=== PATIENT | male | born 1940 | race Caucasian/White ===

== ENCOUNTER 2017-07-26 16:51 | Emergency (ER) | payer BC ==
[2017-07-26 17:20] LABS: Hematocrit 44 % (42-52); Hemoglobin 14.7 g/dl (14.0-18.0); Mean Corpuscular HGB Conc 34 g/dl (31-36); Mean Corpuscular Hemoglobin 35 pg (27-31); Mean Corpuscular Volume 103 fL (80-94); Mean Platelet Volume 9 um3 (7.4-10.4); Red Blood Count 4.21 10^6/ul (4.0-5.4); Red Cell Distribution Width 13 % (10.5-15); White Blood Count 8.4 10^3/ul (3.5-10.8)
--- NOTE | 2017-07-26 17:23 | RAD ---
Indication: Neurologic changes. CT of the brain was performed without IV contrast. Ventricular structures are midline. No midline shift is noted. There is a intraparenchymal hematoma in the left basal ganglia measuring up to 4.0 cm. Adjacent edema is noted. Extra-axial spaces are unremarkable. Mastoid air cells and paranasal sinuses are unremarkable. IMPRESSION: Large intraparenchymal hematoma measuring 4.0 cm in the left basal ganglia. Findings discussed with Dr. Canales at 1720 hours.
[2017-07-26 17:31] LABS: Albumin 3.9 g/dL (3.2-5.2); BUN/Creatinine Ratio 11.7 (8-20); Calcium 9.1 mg/dL (8.6-10.3); EGFR African American 100.1 (>60); EGFR Non-African American 77.8 (>60); Globulin 3.2 g/dL (2-4); HDL Cholesterol 53.9 mg/dL; Potassium 3.4 mmol/L (3.5-5.0); Total Bilirubin 0.9 mg/dL (0.2-1.0); Total Protein 7.1 g/dL (6.4-8.9)
[2017-07-26] MEDS ORDERED: NS 0.9% 1000 ML* 1,000 ML IV ONE (17:38)
[2017-07-26] MEDS: NS 0.9% 1000 ML* 1,000 ML IV ONE ×2 (17:39→19:06)
--- NOTE | 2017-07-26 17:51 | ED ---
Subhash Arora Thomas, scribed for Jamie Canales MD on 07/26/17 at 1745 . Neurological HPI - HPI Summary HPI Summary: The patient is a 77 y/o M BIB EMS with complaints of R-sided weakness that began today at 14:20 when he was playing golf. Per EMS, he has not been feeling well all day. At initial evaluation, he is aphasic with slurred speech. We spoke with his in the ED. Per , he does not have a PMHx of a stroke. He does have a PSHx of a CABG 7 years ago. He has HTN for which he takes Plavix. She denies that he is on Coumadin. She denies that he has DM, major kidney problems, breathing treatments in the last few months, a recent MVC, or a major recent fall. He does not smoke. He does drink daily. - History of Current Complaint Chief Complaint: EDNeurologicalDeficit Stated Complaint: CODE [place] Time Seen by Provider: 07/26/17 16:52 Hx Obtained From: Patient Onset/Duration: Sudden Onset, Started hours ago - today at 16:20 Pain Intensity: 0 Pain Scale Used: 0-10 Numeric - Allergy/Home Medications Allergies/Adverse Reactions: Allergies Allergy/AdvReac Type Severity Reaction Status Date / Time No Known Allergies Allergy Verified 10/31/13 09:44 Home Medications: Home Medications Acetaminophen [Acetaminophen Extra Stren] 500 mg PO Q6HR 07/26/17 [History Confirmed 07/26/17] Allopurinol TAB* [Zyloprim 300 MG TAB*] 300 mg PO DAILY 07/26/17 [History Confirmed 07/26/17] Levothyroxine TAB* [Synthroid TAB*] 25 mcg PO DAILY 07/26/17 [History Confirmed 07/26/17] Metoprolol Tartrate TAB* [Lopressor TAB*] 12.5 mg PO DAILY 07/26/17 [History Confirmed 07/26/17] PMH/Surg Hx/FS Hx/Imm Hx Previously Healthy: No Endocrine/Hematology History: Reports: Hx Anemia - ON DAILY PLAVIX Cardiovascular History: Reports: Hx Coronary Artery Disease - BY-PASS OPEN HEART SURGERY 2010, Hx Hypertension - BP [id number] CHECKED BOTH ARMS: AUTO& MANUAL GI History: Reports: Hx Gastroesophageal Reflux Disease - ON DAILY MEDS Musculoskeletal History: Reports: Hx Arthritis - KNEES Sensory History: Reports: Hx Contacts or Glasses - CONTACTS, WILL WEAR GLASSES Opthamlomology History: Reports: Hx Contacts or Glasses - CONTACTS, WILL WEAR GLASSES - Surgical History Surgery Procedure, Year, and Place: 1965 HERNIA REPAIR. 1991 LEFT KNEE SCOPE. 1997 \RIGHT ELBOW E[facility] [place] SURGERY. 2001 LEFT KNEE SURGERY. 2006 RIGHT KNEE SURGERY. 2008 RIGHT TOTAL KNEE [facility]. 2010 DOUBLE BY-PASS OPEN HEART SURGERY [facility] Hx Anesthesia Reactions: No Infectious Disease History: No Infectious Disease History: Reports: Hx Shingles - 11/2010 Denies: Traveled Outside the [place] in Last 30 Days - Family History Known Family History: Positive: Other - Unknown d/t pt's status - Social History Alcohol Use: Daily Substance Use Type: Reports: None Smoking Status (MU): Never Smoked Tobacco Review of Systems Negative: Fever Neurological: Other - POS: R-sided weakness, aphasia Positive: Slurred Speech All Other Systems Reviewed And Are Negative: Yes Physical Exam Triage Information Reviewed: Yes Vital Signs On Initial Exam: Initial Vitals Temp Pulse Resp BP Pulse Ox 98.2 F 73 18 169/100 99 07/26/17 16:51 07/26/17 16:51 07/26/17 16:51 07/26/17 16:51 07/26/17 16:51 Vital Signs Reviewed: Yes Appearance: Positive: Well-Appearing, No Pain Distress Skin: Positive: Warm, Skin Color Reflects Adequate Perfusion, Dry Head/Face: Positive: Normal Head/Face Inspection Eyes: Positive: EOMI, MODE ENT: Positive: Normal ENT inspection Neck: Positive: Supple, Nontender Respiratory/Lung Sounds: Positive: Clear to Auscultation, Breath Sounds Present Cardiovascular: Positive: RRR Abdomen Description: Positive: Nontender, Soft Musculoskeletal: Positive: Normal, Strength/ROM Intact Neurological: Positive: Expressive Aphasia, Facial Droop, Focal Deficit @ - RT FACE/ARM/LEG IS FLACCID, Slurred Speech, Dysphagia, Dysarthric Aphasia, Other - PARTIAL LEFT EYE GAZE - Jim Coma Scale Coma Scale Total: 12 Diagnostics - Vital Signs Vital Signs Temp Pulse Resp BP Pulse Ox 07/26/17 17:22 73 16 95 07/26/17 17:20 176/103 07/26/17 16:52 96 07/26/17 16:51 98.2 F 73 18 169/100 99 - Laboratory Lab Results: Lab Results 07/26/17 07/26/17 07/26/17 Range/Units 16:55 16:58 16:58 WBC 8.4 (3.5-10.8) 10^3/ul RBC 4.21 (4.0-5.4) 10^6/ul Hgb 14.7 (14.0-18.0) g/dl Hct 44 (42-52) % MCV 103 H (80-94) fL MCH 35 H (27-31) pg MCHC 34 (31-36) g/dl RDW 13 (10.5-15) % Plt Count 144 L (150-450) 10^3/ul MPV 9 (7.4-10.4) um3 Neut % (Auto) 67.6 (38-83) % Lymph % (Auto) 15.9 L (25-47) % [place] % (Auto) 13.2 H (1-9) % Eos % (Auto) 2.4 (0-6) % Baso % (Auto) 0.9 (0-2) % Absolute Neuts (auto) 5.7 (1.5-7.7) 10^3/ul Absolute Lymphs (auto) 1.3 (1.0-4.8) 10^3/ul Absolute Monos (auto) 1.1 H (0-0.8) 10^3/ul Absolute Eos (auto) 0.2 (0-0.6) 10^3/ul Absolute Basos (auto) 0.1 (0-0.2) 10^3/ul Absolute Nucleated RBC 0 10^3/ul Nucleated RBC % 0 INR (Anticoag Therapy) 1.01 (0.89-1.11) APTT 28.8 (26.0-36.3) seconds Sodium (133-145) mmol/L Potassium (3.5-5.0) mmol/L Chloride (101-111) mmol/L Carbon Dioxide (22-32) mmol/L Anion Gap (2-11) mmol/L BUN (6-24) mg/dL Creatinine (0.67-1.17) mg/dL Est GFR ( Amer) (>60) Est GFR (Non-Af Amer) (>60) BUN/Creatinine Ratio (8-20) Glucose (70-100) mg/dL POC Glucose (mg/dL) 102 H (70-100) mg/dL Lactic Acid (0.5-2.0) mmol/L Calcium (8.6-10.3) mg/dL Total Bilirubin (0.2-1.0) mg/dL AST (13-39) U/L ALT (7-52) U/L Alkaline Phosphatase (34-104) U/L Troponin I (<0.04) ng/mL Total Protein (6.4-8.9) g/dL Albumin (3.2-5.2) g/dL Globulin (2-4) g/dL Albumin/Globulin Ratio (1-3) Triglycerides mg/dL Cholesterol mg/dL LDL Cholesterol mg/dL HDL Cholesterol mg/dL Blood Type Antibody Screen 07/26/17 07/26/17 07/26/17 Range/Units 16:58 16:58 16:58 WBC (3.5-10.8) 10^3/ul RBC (4.0-5.4) 10^6/ul Hgb (14.0-18.0) g/dl Hct (42-52) % MCV (80-94) fL MCH (27-31) pg MCHC (31-36) g/dl RDW (10.5-15) % Plt Count (150-450) 10^3/ul MPV (7.4-10.4) um3 Neut % (Auto) (38-83) % Lymph % (Auto) (25-47) % [place] % (Auto) (1-9) % Eos % (Auto) (0-6) % Baso % (Auto) (0-2) % Absolute Neuts (auto) (1.5-7.7) 10^3/ul Absolute Lymphs (auto) (1.0-4.8) 10^3/ul Absolute Monos (auto) (0-0.8) 10^3/ul Absolute Eos (auto) (0-0.6) 10^3/ul Absolute Basos (auto) (0-0.2) 10^3/ul Absolute Nucleated RBC 10^3/ul Nucleated RBC % INR (Anticoag Therapy) (0.89-1.11) APTT (26.0-36.3) seconds Sodium 135 (133-145) mmol/L Potassium 3.4 L (3.5-5.0) mmol/L Chloride 104 (101-111) mmol/L Carbon Dioxide 27 (22-32) mmol/L Anion Gap 4 (2-11) mmol/L BUN 11 (6-24) mg/dL Creatinine 0.94 (0.67-1.17) mg/dL Est GFR ( Amer) 100.1 (>60) Est GFR (Non-Af Amer) 77.8 (>60) BUN/Creatinine Ratio 11.7 (8-20) Glucose 110 H (70-100) mg/dL POC Glucose (mg/dL) (70-100) mg/dL Lactic Acid 1.5 (0.5-2.0) mmol/L Calcium 9.1 (8.6-10.3) mg/dL Total Bilirubin 0.90 (0.2-1.0) mg/dL AST 40 H (13-39) U/L ALT 33 (7-52) U/L Alkaline Phosphatase 82 (34-104) U/L Troponin I 0.00 (<0.04) ng/mL Total Protein 7.1 (6.4-8.9) g/dL Albumin 3.9 (3.2-5.2) g/dL Globulin 3.2 (2-4) g/dL Albumin/Globulin Ratio 1.2 (1-3) Triglycerides 184 mg/dL Cholesterol 131 mg/dL LDL Cholesterol 40 mg/dL HDL Cholesterol 53.9 mg/dL Blood Type O Negative Antibody Screen Pending Result Diagrams: 07/26/17 16:58 07/26/17 16:58 Lab Statement: Any lab studies that have been ordered have been reviewed, and results considered in the medical decision making process. NIH Scale - NIH Scale Level of Consciousness: Alert/Keenly Responsive Ask Patient the Month and His/Her Age: Neither Correct/Aphasic Ask Pt to Open/Close Eyes and Anthropologist/Release Non-Paretic Hand: Both Correctly Best Gaze (Only Horizontal Eye Movement): Partial Gaze Palsy Visual Field Testing: No Visual Loss Facial Paresis-Pt to Smile & Close Eyes or Grimace Symmetry: Complete Paralysis Motor Function - Right Arm: No Effort Against [place] Motor Function - Left Arm: No Drift-Holds 10 Seconds Motor Function - Right Leg: No Effort Against [place] Motor Function - Left Leg: No Drift-Holds 10 Seconds Limb Ataxia-Must be out of Proportion to Weakness Present: Present in Two Limbs Sensory (Use Pinprick to Test Arms/Legs/Trunk/Face): Pinprick Less on Affected Best Language (Describe Picture, Name Items): Mute/Global Aphasia Dysarthria (Read Several Words): Unintelligible or Mute Extinction and Inattention: Profound Bj-Inattention Total Score: 22 Course/Dx - Course Course Of Treatment: INITIAL NIH 22 AT 1655. NIH [address] SEALS, NEUROLOGY SAW PATIENT IN ED. GOAL TO KEEP BP < 170/90, BP 170/80 IN ED. NO NEUROSURGERY AT [facility]. PATIENT ACCEPTED IN TRANSFER TO [facility] BY NEUROSURGERY, DR NAVA. MARCUSFER BY AIR. GUARDED, MAINTAINING AIRWAY AT TRANSFER. - Diagnoses Provider Diagnoses: Basal ganglia hemorrhage, Basal ganglia hemorrhage - Critical Care Time Critical Care Time: 30-74 min Discharge - Discharge Plan Condition: Guarded Disposition: TRANS HIGHER LVL OF CARE FAC Referrals: Donald Dickinson MD [Primary Care Provider] - The documentation as recorded by the Subhash parker Thomas accurately reflects the service I personally performed and the decisions made by me, Jamie Canales MD.
--- NOTE | 2017-07-26 18:07 | RAD ---
Indication: Stroke. Single frontal view of the chest performed at 1730 hours was reviewed. Comparison is made with previous exam dated April 30, 2005. Cardiomegaly is noted. Patient is status post tracer thoracotomy. Lung gu are essentially clear. IMPRESSION: NO ACTIVE CARDIOPULMONARY DISEASE IS NOTED.
[2017-07-26 18:25] VITALS: BP 165/80
--- NOTE | 2017-07-26 21:51 | CONS ---
NEUROLOGY CONSULTATION: DATE OF CONSULTATION: 07/26/17 REFERRING PHYSICIAN: Dr. Canales. LOCATION: He is in the emergency room. CHIEF COMPLAINT: Right hemiparesis. HISTORY OF PRESENT ILLNESS: Josh Bains is a 77-year-old right-handed man who was out golfing at [employer] today when he developed neurological deficits. According to the ambulance attendance who brought him, they were called and told that within the last 20 minutes to 30 minutes prior to the arrival, he developed inability to speak and right-sided weakness. He was unable to get out the golf cart under his own power. He was brought into the emergency room and was here within less than 60 minutes of onset of symptoms with last known well about 4:30. His was subsequently present, provided further history. He was sent to the CAT scanner and that shows a fairly large left basal ganglia hemorrhage. He is on Plavix, but has no prior history of intracranial hemorrhage. He does have history of hypertension. PAST MEDICAL HISTORY: Notable for arthroscopic knee surgeries, multiple other orthopedic surgeries, Staph infection in his knee years ago, coronary artery disease with bypass surgery in 2010, hyperlipidemia, hypertension, gastroesophageal reflux. MEDICATIONS: I do not have a full home medications list, but he is on: 1. Metoprolol. 2. Plavix. 3. Omeprazole. 4. Simvastatin. 5. Allopurinol. 6. Levothyroxine. ALLERGIES: According to computer records, he does not have any drug allergies. REVIEW OF SYSTEMS: Review of systems is from his . He did have fall at home a couple of weeks ago, but he did not seem to be injured. He is generally pretty steady on his feet. He golfs for exercise and is supposed to be in a semifinals in a tournament that he is in in the next day or so. He has not had any recent trauma. He has not had any recent surgeries. He has no known bleeding disorders. He is not on anticoagulants, just Plavix for his coronary artery disease. He does not smoke. His when asked if he drinks says yes, "too much." PHYSICAL EXAMINATION: He is well nourished and well hydrated. Temperature 98.2 , initial blood pressure was 190/100 and more recently came down to 176/103 without additional medical therapy. Heart rate is in the 70s on the monitor, in sinus rhythm. Respiratory rate is about 16 and oxygen saturation is 95% on room air. Lungs are clear anterolaterally. Heart is in a regular rhythm without murmurs. Carotid pulses are present and there are no cervical bruits. Oral mucosa is moist and atraumatic. Head is atraumatic. Neurologic Exam: Pupils react equally from 4 to down about 2.5 mm. His left gaze preference is able to exhibit full versions with tracking. He does not respond to visual threat from the right, but he does from the left. He has central pattern right facial weakness, this was pretty pronounced. He is able to protrude his tongue , which deviates to the right. There is no gag response on either side. He is able to tell me that his name is Josh, but he is quite dysarthric. He does not produce any speech spontaneously. He has good use of his left arm and leg and follows commands about 75% at the time. He is able to raise his right hand up a little bit, his right arm, but not completely off the stretcher not for a long. He is able to raise the right leg up quite well with a little bit of drift. He has good strength on the left side. He has a right Babinski sign. He is a little bit sleepy with his eyes closed at times, but he remains otherwise alert through the evaluation. His NIH stroke score is at least 17 by my assessment. LABORATORY/DIAGNOSTIC DATA: CT of the brain was obtained and described above. It was interpreted by ____as showing a large intraparenchymal hematoma measuring 4 cm in the left basal ganglia. Other laboratory studies are notable for CBC with a normal hemoglobin and white blood cell count, MCV elevated at 103 and platelet count 144,000. Lymphocyte percentage is down to 15.9%. His INR is 1.01 and PTT 28.8 today. Chemistries notable for potassium of 3.4, glucose of 110. Otherwise, normal chemistry profile. Initial troponin is 0. Cholesterol today is 131 and LDL 40. IMPRESSION AND RECOMMENDATIONS: Impression is that of a fairly large hypertensive basal ganglia hemorrhage. Recommend very modest decrease in blood pressure by about 10% or so with labetalol. Dr. Canales is currently calling to find a center with neurosurgical capability for transfer. I have discussed the situation with Mrs. Bains, who is present and then her 2 daughters, who subsequently arrived. Explained the rationale behind the need for neurosurgical transfer in case he were to deteriorate and required neurosurgical intervention. He also would likely benefit from neuro ICU capabilities, which we do not have here. [id number]/[facility] #: [id number] LUANA
== END 2017-07-26 18:27 | disposition short-term general hospital (02) ==
LOC: EDBD → MERGE 16:51 → ED 16:51
DX: I61.9 Nontraumatic intracerebral hemorrhage, unspecified (principal); Z86.79 Personal history of other diseases of the circulatory system; R47.81 Slurred speech
CPT/HCPCS: 36415; 70450; 71010; 80053; 80061; 83605; 84484; 85025; 85610; 85730; 86850; 86900; 86901; 99285

== ENCOUNTER 2019-03-22 08:42 | Day surgery (SDC) | payer BC ==
[~2019-03-22 08:42] MED LIST: Acetaminophen TAB* 325 MG PO PRN; Buffered Lidocaine 1% SYRIN* 1 ML/SYRINGE INTRADERM ONE
[2019-03-22] MEDS ORDERED: Midazolam* 1 MG/ML 2 ML VIAL (2 MG) ONE (11:11)
[2019-03-22 13:01] VITALS: BP 145/81
[2019-03-22] MEDS ORDERED: Cyclopentolate 1% OPTH.SOL* 2 ML BTL ONE (14:03)
[2019-03-22] MEDS ORDERED: Neomycin/Polymy/Dex OPTH.SUSP* MAXITROL 0.1% 5 ML ONE (14:03)
[2019-03-22] MEDS ORDERED: acetaZOLAMIDE TAB* 250 MG ONE (14:03)
[2019-03-22] MEDS ORDERED: Proparacaine 0.5% OPHTH.SOL* 15 ML BTL ONE (14:03)
[2019-03-22] MEDS ORDERED: Phenylephrine OPHTH SOL 2.5%* 2 ML ONE (14:03)
[2019-03-22] MEDS ORDERED: Povidone Iodine 5% OPTH* 30 ML BTL ONE (14:03)
[2019-03-22] MEDS ORDERED: Lidocaine 1%* 5 ML VIAL ONE (14:03)
[2019-03-22] MEDS ORDERED: Lidocaine 2% EPI 1:200000 MPF*10-20 ML VIAL ONE (14:03)
--- NOTE | 2019-03-22 14:23 | OP ---
OPERATIVE NOTE: DATE OF OPERATION: 03/22/19 DATE OF : 40 SURGEON: Eric Rosenthal M.D. PREOPERATIVE DIAGNOSIS: Cataract, left eye. POSTOPERATIVE DIAGNOSIS: Cataract, left eye. OPERATIVE PROCEDURE: Extracapsular cataract extraction with intraocular lens implant, left eye. PROCEDURE: The patient was brought to the operating room after being given 1/2% Alcaine with epineph rine drops in the preoperative area. The eye was prepped and draped in the usual sterile fashion. S terile drape and eyelid speculum were placed. Again, topical 1/2% Alcaine with epinephrine was given . A paracentesis incision was made at the 3 o'clock position with the No.75 blade. Clear cornea inc ision 2.2 x 2.2-mm was created at the 6 o'clock position starting at the anterior limbus using the 2. 2-mm keratome. The anterior chamber was irrigated with 0.4 mL of 1% non-preservative intracameral li docaine and filled with DisCoVisc. A capsulorrhexis was completed using the cystotome and the Utrata forceps. Hydrodissection was performed with balanced salt solution. The lens nucleus was removed wi th the Phacoemulsification handpiece without incident. Cortex was removed with the irrigation-aspira tion handpiece. The capsular bag was re-inflated using DisCoVisc and an [id number] implant was insert ed with the shooter. The irrigation-aspiration handpiece was used to remove all residual DisCoVisc. The eye was refilled with balanced salt solution and the wound checked and found to be watertight. Topical Maxitrol drops were given. All measurements were confirmed with ORA. [id number]/[facility] #: [id number]
== END 2019-03-22 12:03 | disposition home or self-care (01) ==
LOC: OREAST 08:42
PROVIDERS: ATTEND Specialist
DX: H25.812 Combined forms of age-related cataract, left eye (principal); I10 Essential (primary) hypertension; K21.9 Gastro-esophageal reflux disease without esophagitis; I25.10 Atherosclerotic heart disease of native coronary artery without angina pectoris; Z95.1 Presence of aortocoronary bypass graft; E03.9 Hypothyroidism, unspecified; Z79.01 Long term (current) use of anticoagulants; M10.9 Gout, unspecified
CPT/HCPCS: A9270-GY; J2250; V2632

== ENCOUNTER 2019-03-29 12:24 | Day surgery (SDC) | payer BC ==
[~2019-03-29 12:24] MED LIST changes: +Cyclopentolate 1% OPTH.SOL* 2 ML BTL ONE; +Ketorolac 0.5% OPHTH (NF) 0.5 % 5 ML BTL ONE; +Lidocaine 1%* 5 ML VIAL ONE; +Lidocaine 2% EPI 1:200000 MPF*10-20 ML VIAL ONE; +Neomycin/Polymy/Dex OPTH.SUSP* MAXITROL 0.1% 5 ML ONE; +Phenylephrine OPHTH SOL 2.5%* 2 ML ONE; +Povidone Iodine 5% OPTH* 30 ML BTL ONE; +Proparacaine 0.5% OPHTH.SOL* 15 ML BTL ONE; +acetaZOLAMIDE TAB* 250 MG ONE
[2019-03-29] MEDS ORDERED: Midazolam* 1 MG/ML 2 ML VIAL (2 MG) ONE (15:06)
[2019-03-29 17:39] VITALS: BP 130/70
--- NOTE | 2019-03-29 21:30 | OP ---
DATE OF OPERATION: 03/29/19 [facility] DATE OF : 40 SURGEON: Eric Rosenthal M.D. PREOPERATIVE DIAGNOSIS: Cataract, right eye. POSTOPERATIVE DIAGNOSIS: Cataract, right eye. OPERATIVE PROCEDURE: Extracapsular cataract extraction with intraocular lens implant, right eye. DESCRIPTION OF PROCEDURE: The patient was brought to the operating room after being given 1/2% Alcaine with epinephrine drops in the preoperative area. The eye was prepped and draped in the usual sterile fashion. Sterile drape and eyelid speculum were placed. Again, topical 1/2% Alcaine with epinephrine was given. A paracentesis incision was made at the 9 o'clock position with the No.75 blade. Clear cornea incision 2.2 x 2.2-mm was created at the 12 o'clock position starting at the anterior limbus using the 2.2-mm keratome. The anterior chamber was irrigated with 0.4 mL of 1% non-preservative intracameral lidocaine and filled with DisCoVisc. A capsulorrhexis was completed using the cystotome and the Utrata forceps. Hydrodissection was performed with balanced salt solution. The lens nucleus was removed with the Phacoemulsification handpiece without incident. Cortex was removed with the irrigation-aspiration handpiece. The capsular bag was re-inflated using DisCoVisc and an [id number] 14.5 implant was inserted with the shooter and confirmed with ORA. The irrigation- aspiration handpiece was used to remove all residual DisCoVisc. The eye was refilled with balanced salt solution and the wound checked and found to be watertight. Topical Maxitrol drops were given. [id number]/[facility] #: [id number] [facility]
== END 2019-03-29 16:35 | disposition home or self-care (01) ==
LOC: OREAST 12:24
PROVIDERS: ATTEND Specialist
DX: H25.811 Combined forms of age-related cataract, right eye (principal); I10 Essential (primary) hypertension; K21.9 Gastro-esophageal reflux disease without esophagitis; I25.10 Atherosclerotic heart disease of native coronary artery without angina pectoris; Z95.1 Presence of aortocoronary bypass graft; E78.5 Hyperlipidemia, unspecified; E03.9 Hypothyroidism, unspecified; Z79.01 Long term (current) use of anticoagulants; M10.9 Gout, unspecified
CPT/HCPCS: A9270-GY; J2250; V2632

== ENCOUNTER 2019-07-28 10:02 | Observation (INO) | payer BC ==
[2019-07-28] MEDS ORDERED: NS 0.9% 1000 ML** 1,000 ML IV ONE (10:13)
--- NOTE | 2019-07-28 10:19 | ED ---
Neurological HPI - HPI Summary HPI Summary: This patient is a 79 year old M presenting to ED with a chief complaint of AMS at 845 lasting 15 minutes. Michelle Macias called at 1005. Dr. Lin at bedside at 1005. Patient woke up fine this morning and was eating breakfast with his significant other. Significant other was putting dishes in the sink when she noticed that the patient was cradling his head and leaning on the counter. Patients eyes were not focusing and he couldnt speak even though he was trying to. Significant other states that the patient also had labored breathing and vomited. She had to support the patient to prevent him from falling. Significant other called 911 and moved the patient to a comfortable chair. Upon EMS arrival, patient was back to baseline, responding fine. The AMS lasted approximately 15 minutes. EMS told the patients caretakers (significant other and son) that he most likely had a mini-stroke and was advised to come to [facility]. Patient arrives at [facility] at baseline. He has a history of one stroke two years ago and takes Plavix. The patient rates the pain 0/10 in severity. Symptoms aggravated by nothing. Symptoms alleviated by nothing. - History of Current Complaint Chief Complaint: EDNeurologicalDeficit Stated Complaint: POSS TIA PER PT Hx Obtained From: Patient, Family/Basketball Scout Onset/Duration: Sudden Onset, Started minutes ago - 15 minutes, Resolved Timing: Sudden Onset - 15 minutes Onset Severity: Moderate Current Severity: None Pain Intensity: 0 Pain Scale Used: 0-10 Numeric Character: Impaired Speech Aggravating: Nothing Alleviating: Nothing Associated Signs and Symptoms: Positive: Impaired Speech, Nausea/Vomiting - Allergy/Home Medications Allergies/Adverse Reactions: Allergies Allergy/AdvReac Type Severity Reaction Status Date / Time aspirin Allergy Joint Pain Verified 07/25/19 09:44 Home Medications: Home Medications Carvedilol TAB* [Coreg TAB*] 6.25 mg PO BID 07/28/19 [History Confirmed 07/28/19 ] Cyanocobalamin TAB* [Vitamin B12 TAB*] 1,000 mcg PO DAILY 07/28/19 [History Confirmed 07/28/19] Levothyroxine TAB* [Synthroid TAB*] 75 mcg PO DAILY 07/28/19 [History Confirmed 07/28/19] PMH/Surg Hx/FS Hx/Imm Hx Previously Healthy: No Endocrine/Hematology History: Reports: Hx Thyroid Disease - Hypothyroid, Hx Anemia - ON DAILY PLAVIX Denies: Hx Diabetes Cardiovascular History: Reports: Hx Coronary Artery Disease - BY-PASS OPEN HEART SURGERY 2010, Hx Hypertension - BP [id number]/90 CHECKED BOTH ARMS: AUTO& MANUAL Denies: Hx Cardiomegaly, Hx Congestive Heart Failure, Hx Hypercholesterolemia , Hx Pacemaker/ICD, Hx Peripheral Vascular Disease, Other Cardiovascular Problems/Disorders Respiratory History: Denies: Hx Pulmonary Embolism, Other Respiratory Problems/Disorders GI History: Reports: Hx Gastroesophageal Reflux Disease - ON DAILY MEDS Denies: Hx Ulcer, Other GI Disorders History: Denies: Other Problems/Disorders Musculoskeletal History: Reports: Hx Arthritis - KNEES Denies: Hx Tendonitis Comment Only: Other Musculoskeletal History - Bilateral total knee replacements Sensory History: Reports: Hx Cataracts - Bilateral, Hx Contacts or Glasses - CONTACTS, WILL WEAR GLASSES Denies: Hx Hearing Aid Opthamlomology History: Reports: Hx Cataracts - Bilateral, Hx Contacts or Glasses - CONTACTS, WILL WEAR GLASSES Neurological History: Reports: Hx CVA Denies: Other Neuro Impairments/Disorders - Surgical History Surgery Procedure, Year, and Place: 1965 HERNIA REPAIR. 1991 LEFT KNEE SCOPE. 1997 \\RIGHT ELBOW ELAINE [place] SURGERY. 2001 LEFT KNEE SURGERY. 2006 RIGHT KNEE SURGERY. 2008 RIGHT TOTAL KNEE [facility]. 2010 DOUBLE BY-PASS OPEN HEART SURGERY [facility] Hx Anesthesia Reactions: No Infectious Disease History: No Infectious Disease History: Reports: Hx Shingles - 11/2010 Denies: Traveled Outside the [place] in Last 30 Days - Family History Known Family History: Positive: Hypertension, Other - Unknown d/t pt's status - Social History Alcohol Use: Daily Alcohol Amount: 1 -2 glasses of wine Hx Substance Use: No Substance Use Type: Reports: None Hx Tobacco Use: No Smoking Status (MU): Never Smoked Tobacco Review of Systems Eyes: Other - "Not focusing" Positive: Vomiting Neurological: Other - AMS (unable to speak) All Other Systems Reviewed And Are Negative: Yes Physical Exam - Summary Physical Exam Summary: VITAL SIGNS: Reviewed. GENERAL: Patient is a well-developed and nourished male who is lying comfortable in the stretcher.Patient is not in any acute respiratory distress. HEAD AND FACE: No signs of trauma. No ecchymosis, hematomas or skull depressions. No sinus tenderness. EYES: PERRLA, EOMI x 2, No injected conjunctiva, no nystagmus. No photophobia. EARS: Hearing grossly intact. Ear canals and tympanic membranes are within normal limits. MOUTH: Oropharynx within normal limits. NECK: Supple, trachea is midline, no adenopathy, no JVD, no carotid bruit, no c- spine tenderness, neck with full ROM. No meningeal signs, no Kernig's or brudzinskis signs. CHEST: Symmetric, no tenderness at palpation. LUNGS: Clear to auscultation bilaterally. No wheezing or crackles. CVS: Regular rate and rhythm, S1 and S2 present, no murmurs or gallops appreciated. ABDOMEN: Soft, non-tender. No signs of distention. No rebound, no guarding, and no masses palpated. Bowel sounds are normal. EXTREMITIES: FROM in all major joints, no edema, no cyanosis or clubbing. NEURO: Alert and oriented x 3. No acute neurological deficits. Speech is normal and follows commands. SKIN: Dry and warm. GCS: 15 Triage Information Reviewed: Yes Vital Signs On Initial Exam: Initial Vitals Temp Pulse Resp BP Pulse Ox 97.5 F 51 16 155/87 96 07/28/19 10:03 07/28/19 10:03 07/28/19 10:03 07/28/19 10:03 07/28/19 10:03 Vital Signs Reviewed: Yes - Jim Coma Scale Best Eye Response: 4 - Spontaneous Best Motor Response: 6 - Obeys Commands Best Verbal Response: 5 - Oriented Coma Scale Total: 15 Diagnostics - Vital Signs Vital Signs Temp Pulse Resp BP Pulse Ox 07/28/19 10:03 97.5 F 51 16 155/87 96 - Laboratory Result Diagrams: 07/28/19 10:45 07/28/19 10:45 Lab Statement: Any lab studies that have been ordered have been reviewed, and results considered in the medical decision making process. - Radiology CXR Radiology Interpretation Completed By: Radiologist Summary of Radiographic Findings: NO ACUTE CARDIOPULMONARY PROCESS BY RADIOGRAPH. Dr. Lin has reviewed this radiology report. - CT Brain CT Interpretation Completed By: Radiologist Summary of CT Findings: 1. No acute intracranial abnormality by CT (MRI is more sensitive for acute infarct). 2. 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 3. Moderate chronic small vessel ischemic disease. Dr. Lin has reviewed this radiology report. Head/Neck CT Interpretation Completed By: Radiologist Summary of CT Findings: Head CTA: 1. Generalized atherosclerotic irregularity with no acute acute occlusion, significant stenosis or aneurysm. Neck CTA: 1. No acute occlusive disease or dissection. 2. Mixed soft and calcified atherosclerotic plaque near the right common carotid artery bifurcation. Dr. Lin has reviewed this radiology report. - EKG 1050 Cardiac Rate: Bradycardia - 59 BPM EKG Rhythm: Sinus Bradycardia ST Segment: Normal Ectopy: None Summary of EKG Findings: Sinus bradycardia at 59 BPM, no ST elevations, similar to previous taken 07/25/19. NIH Scale - NIH Scale Level of Consciousness: Alert/Keenly Responsive Ask Patient the Month and His/Her Age: Both Correct Ask Pt to Open/Close Eyes and Foundation Relations Manager/Release Non-Paretic Hand: Both Correctly Best Gaze (Only Horizontal Eye Movement): Normal Visual Field Testing: No Visual Loss Facial Paresis-Pt to Smile & Close Eyes or Grimace Symmetry: Normal/Symmetrical Motor Function - Right Arm: No Drift-Holds 10 Seconds Motor Function - Left Arm: No Drift-Holds 10 Seconds Motor Function - Right Leg: No Drift-Holds 10 Seconds Motor Function - Left Leg: No Drift-Holds 10 Seconds Limb Ataxia-Must be out of Proportion to Weakness Present: Absent Sensory (Use Pinprick to Test Arms/Legs/Trunk/Face): Normal Best Language (Describe Picture, Name Items): No Aphasia Dysarthria (Read Several Words): Normal Extinction and Inattention: No Abnormality Total Score: 0 Re-Evaluation - Re-Evaluation First Eval Re-Evaluation Time: 11:18 Comment: Discussed results and plan for head CTA, MRI, and admission with patient. Patient agrees [place] [facility] Course/Dx - Course Assessment/Plan: This patient is a 79 year old M presenting to ED with a chief complaint of AMS at 845 lasting 15 minutes. Michelle Macias called at 1005. Dr. Lin at bedside at 1005. Patient woke up fine this morning and was eating breakfast with his significant other. Significant other was putting dishes in the sink when she noticed that the patient was cradling his head and leaning on the counter. Patients eyes were not focusing and he couldnt speak even though he was trying to. Significant other states that the patient also had labored breathing and vomited. She had to support the patient to prevent him from falling. Significant other called 911 and moved the patient to a comfortable chair. Upon EMS arrival, patient was back to baseline, responding fine. The AMS lasted approximately 15 minutes. EMS told the patients caretakers (significant other and son) that he most likely had a mini-stroke and was advised to come to [facility]. Patient arrives at [facility] at baseline. He has a history of one stroke two years ago and takes Plavix. The patient rates the pain 0/10 in severity. Symptoms aggravated by nothing. Symptoms alleviated by nothing. Initially a code familia was called in triage by the triage nurse. I interviewed and examined the patient and all his symptoms are back to baseline. The neurological exam is intact. He has no acute neurological focal deficits. NIH score is equal to 0 and the GCS is equal to 15. Therefore, I cancelled the code barbosa. However, I obtain a head CT immediately and the impression is: IMPRESSION: 1. No acute intracranial abnormality by CT (MRI is more sensitive for acute infarct). 2. Encephalomalacia and probable hemosiderin deposition in the region of an old left. basal ganglia hematoma. 3. Moderate chronic small vessel ischemic disease. CXR IMPRESSION: NO ACUTE CARDIOPULMONARY PROCESS BY RADIOGRAPH. At this point, I discussed my physical exam findings and test results with Dr. Carpenter from neurology and he recommends for the patient to get a CTA of head and neck and also an MRI as well as admission to the hospital services. At approximately 11:30 AM, the patient continues to be alert and oriented 3, no acute neurological focal deficits. Blood work without any significant abnormality, except for sodium 132. Carbon dioxide is 20. I discussed again his exam and test results with Dr. Carpenter and he does want a CTA of head and neck and an MRI of the brain. He also requests admission to the hospitalist. I discussed the case with Dr. Stokes from the hospital services who accepted the patient for admission. - Diagnoses Provider Diagnoses: TIA (transient ischemic attack) During the Visit The Following Alert/Code Occurred: Michelle Macias - Physician Notifications Discussed Care Of Patient With: Michael Carpenter Time Discussed With Above Provider: 10:22 Instructed by Provider To: Other - Discussed patient case with Dr. Carpenter, who stated that because the patient is at baseline in the ED, recommends continue with head and neck after labs. He also recommended the patient continue with Plavix and be admitted to hospital. At 1039 discussed patient case with Dr. Herman, radiologist, who stated no acute abnormalities on the brain CT so he recommended an MRI. At 1110, discussed patient case with Dr. Carpenter who requested both the head/neck CTA and an MRI. At 1200 discussed patient case with Dr. Stokes, hospitalist, who accepted the patient for [place] [facility] - Critical Care Time Critical Care Time: 30-74 min - 30 minutes Discharge ED - Sign-Out/Discharge Documenting (check all that apply): Patient Departure - Admit Patient Received Moderate/Deep Sedation with Procedure: No - Discharge Plan Condition: Fair Disposition: ADMITTED TO [facility] - Billing Disposition and Condition Condition: FAIR Disposition: Admitted to [facility] - Attestation Statements Document Initiated by Dorinda: Yes Documenting Scribe: Julián Gupta Provider For Whom Dorinda is Documenting (Include Credential): Rafael Lin MD Scribe Attestation: I, Julián Gupta, scribed for Rafael Lin MD on 07/28/19 at 1843. Scribe Documentation Reviewed: Yes Provider Attestation: The documentation as recorded by the uJlián parker accurately reflects the service I personally performed and the decisions made by me, Rafael Lin MD Status of Scribe Document: Viewed
[2019-07-28 10:52] LABS: ABS Eosinophils 0.2 10^3/ul (0-0.6); ABS Lymphocytes 1.3 10^3/ul (1.0-4.8); ABS Neutrophils 5.1 10^3/ul (1.5-7.7); Eosinophil % 3.1 %; Hematocrit 43 % (42-52); Hemoglobin 14.9 g/dL (14.0-18.0); Lymphocyte % 16.8 %; Mean Corpuscular HGB Conc 35 g/dL (31-36); Mean Corpuscular Hemoglobin 36 pg (27-31); Mean Corpuscular Volume 103 fL (80-94); Mean Platelet Volume 8.3 fL (7.4-10.4); Nucleated Red Blood Cells % 0.1; Platelet Count 147 10^3/uL (150-450); Red Cell Distribution Width 13 % (10-15); White Blood Count 7.6 10^3/uL (3.5-10.8)
[2019-07-28 11:04] LABS: Activated Partial Thrombo Time 18.5 seconds (26.0-38.0); INR 1.02 (0.82-1.09)
[2019-07-28 11:11] LABS: Troponin I 0.01 ng/mL (<0.04)
[2019-07-28 11:23] LABS: Albumin 3.9 g/dL (3.2-5.2); Albumin/Globulin Ratio 1.3 (1-3); EGFR African American 109.7 (>60); EGFR Non-African American 90.6 (>60); HDL Cholesterol 52.5 mg/dL; Potassium 4.3 mmol/L (3.5-5.0); Total Bilirubin 0.6 mg/dL (0.2-1.0); Total Protein 6.9 g/dL (6.4-8.9)
[2019-07-28] MEDS ORDERED: Iohexol 350* (CONTRAST) 500 ML MDV IV ONE (11:54)
[2019-07-28 14:10] LABS: Urine Appearance Clear; Urine Bilirubin Negative (Negative); Urine Blood Negative (Negative); Urine Color Straw; Urine Glucose Negative (Negative); Urine Ketones Trace (Negative); Urine Nitrite Negative (Negative); Urine Protein Negative (Negative); Urine Specific Gravity 1.025 (1.010-1.030); Urine Urobilinogen Negative (Negative)
--- NOTE | 2019-07-28 14:26 | ADMNOTE ---
Subjective Date of Service: 07/28/19 Interval History: ADMISSION HISTORY AND PHYSICAL EXAM: Allergies Allergy/AdvReac Type Severity Reaction Status Date / Time aspirin Allergy Joint Pain Verified 07/25/19 09:44 Home Medications Medication Instructions Recorded Confirmed Type Clopidogrel TAB* [Plavix TAB*] 75 mg PO BEDTIME 10/18/13 07/28/19 History Simvastatin TAB(NF) [Zocor(NF)] 10 mg PO BEDTIME 09/27/15 07/28/19 History Allopurinol TAB* [Zyloprim 300 MG 300 mg PO QAM 07/26/17 07/28/19 History TAB*] Carvedilol TAB* [Coreg TAB*] 6.25 mg PO BID 07/28/19 07/28/19 History Cyanocobalamin TAB* [Vitamin B12 1,000 mcg PO DAILY 07/28/19 07/28/19 History TAB*] Levothyroxine TAB* [Synthroid TAB*] 75 mcg PO DAILY 07/28/19 07/28/19 History HPI: The patient was in his usual state of health until about 9 AM today. He awoke about 8 AM, had a shower, took his AM meds, and was eating breakfast when his parner noticed he did not seem yojana hear or understand her and did not speak. This spell lasted about 5 minutes. It was his first neuro sx since his stoke 2 yrs ago. He has mild dysarthria and R leg dragging since his stroke and is at his baseline per pt and his partner. Family History: Findings - Unremarkable Social History: Findings - Lives with his partner Katelin Escudero, who is his SDM. 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 Never smoked, no alcohol abuse. Review of Systems - Measurements Intake and Output: Intake and Output Last 24 Hours 07/26/19 07/27/19 07/28/19 07/29/19 06:59 06:59 06:59 06:59 Weight 197 lb - Review of Systems Constitutional Symptoms: Negative: Weight Gain, Weight Loss, Weakness, Fatigue, Fever, Night Sweats, Unexplained Falls, Other Dermatology: Positive: Normal Eyes: Positive: Normal Pulmonary: Positive: Normal Cardiology: Positive: Normal Gastroenterology: Positive: Normal Genital - Urinary: Positive: Normal Musculoskeletal: Positive: Joint Pain Endocrinology: Positive: Normal Hematologic/Lymphatic: Negative: Anemia, Easy Bruising, Hx Leukemia, Hx Lymphoma, Use of Anticoagulant, Use of Antiplatelet Drugs, Other Neurology: Positive: Other - see HPI Psychiatry: Positive: Normal Allergic/Immunologic: Negative: Hx Anaphylaxis, Hx Angioedema, Hx Environmental, Hx Seasonal, Asthma, Hx HIV, Immunocompromise, Swollen Glands LymphNodes, Other Objective Active Medications: Allopurinol (Zyloprim Tab*) 300 mg PO QAM ANDRÉS Atorvastatin Calcium (Lipitor*) 5 mg PO BEDTIME ANDRÉS Carvedilol (Coreg Tab*) 6.25 mg PO BID ANDRÉS Clopidogrel Bisulfate (Plavix Tab*) 75 mg PO BEDTIME ANDRÉS Cyanocobalamin (Vitamin B12 Tab*) 1,000 mcg PO DAILY ANDRÉS Levothyroxine Sodium (Synthroid Tab*) 75 mcg PO DAILY [facility] Vital Signs - 8 hr 07/28/19 07/28/19 07/28/19 10:03 10:11 10:14 Temperature 97.5 F Pulse Rate 51 112 Respiratory 16 Rate Blood Pressure 155/87 (mmHg) O2 Sat by Pulse 96 84 99 Oximetry 07/28/19 07/28/19 07/28/19 10:30 11:00 11:02 Temperature Pulse Rate 58 57 58 Respiratory 22 16 14 Rate Blood Pressure 165/85 146/81 (mmHg) O2 Sat by Pulse 100 97 98 Oximetry 07/28/19 07/28/19 07/28/19 11:32 12:04 12:32 Temperature Pulse Rate 65 61 Respiratory 22 26 16 Rate Blood Pressure 144/78 169/83 156/91 (mmHg) O2 Sat by Pulse 98 97 Oximetry 07/28/19 07/28/19 07/28/19 13:00 13:02 13:07 Temperature Pulse Rate 55 59 54 Respiratory 13 11 8 Rate Blood Pressure 185/84 166/95 (mmHg) O2 Sat by Pulse 97 98 97 Oximetry 07/28/19 07/28/19 13:32 13:54 Temperature Pulse Rate 59 59 Respiratory 15 22 Rate Blood Pressure 169/86 162/94 (mmHg) O2 Sat by Pulse 97 97 Oximetry Oxygen Devices in Use Now: None Appearance: Alert, partly up on ED stretcher. In good spirits. Looks comfortable. Eyes: No Scleral Icterus Neck: NL Appearance and Movements; NL JVP, No Thyroid Enlargement, Masses Respiratory: Symmetrical Chest Expansion and Respiratory Effort, Clear to Auscultation, Clear to Percussion Cardiovascular: NL Sounds; No Murmurs; No JVD, RRR, No Edema, - Abdominal: NL Sounds; No Tenderness; No Distention, No Hepatosplenomegaly, - Extremities: No Edema, No Clubbing, Cyanosis, - Skin: No Rash or Ulcers, No Nodules or Sclerosis, - Neurological: Alert and Oriented x 3, NL Sensation, - - mild dysarthria. R hot roller sl weaker than L hot roller. No tremor. Result Diagrams: 07/28/19 10:45 07/28/19 10:45 Assess/Plan/Problems-Billing Assessment: - Patient Problems (1) Aphasia Current Visit: Yes Status: Acute Code(s): R47.01 - APHASIA SNOMED Code(s) : 45859010 Comment: TIA vs CVA. MRI pending. Tele to look for afib or other arrhythmia. Continue clopidogrel. Note CTA shows no large-vessel occlusion. (2) CAD (coronary artery disease) Current Visit: Yes Status: Acute Code(s): I25.10 - ATHSCL HEART DISEASE OF [place] CORONARY ARTERY W/O ANG PCTRS SNOMED Code(s): 12401951 Comment: Continue carvedilol, clopidogrel, statin. Note LDL is 47 07/28/19. (3) Gout Current Visit: Yes Status: Acute Code(s): M10.9 - GOUT, UNSPECIFIED SNOMED Code(s): 66301216 Comment: Continue allopurinol (4) Hypothyroid Current Visit: Yes Status: Acute Code(s): E03.9 - HYPOTHYROIDISM, UNSPECIFIED SNOMED Code(s): 57168620 Comment: Continue levothyroxine. Addon TSH.
[2019-07-28 15:09] LABS: TSH (Thyroid Stimulating Horm) 5.44 mcIU/mL (0.34-5.60)
[2019-07-28] MEDS ORDERED: Atorvastatin* 10 MG TAB PO SCH (21:00)
[2019-07-28] MEDS ORDERED: Clopidogrel TAB* 75 MG PO SCH (21:00)
[2019-07-28] MEDS: Carvedilol TAB* 6.25 MG PO SCH (22:19)
[2019-07-29] MEDS ORDERED: Levothyroxine TAB* 75 MCG TAB PO SCH (06:00)
[2019-07-29 08:03] VITALS: BP 117/60
[2019-07-29] MEDS: Carvedilol TAB* 6.25 MG PO SCH (08:15)
[2019-07-29] MEDS ORDERED: Allopurinol TAB* 300 MG PO SCH (09:00)
[2019-07-29] MEDS ORDERED: Cyanocobalamin TAB* 500 MCG PO SCH (09:00)
--- NOTE | 2019-07-29 10:35 | DS ---
CC: Dr. Dickinson; Dr. Singh DISCHARGE SUMMARY: DATE OF ADMISSION: DATE OF DISCHARGE: 07/29/19 HISTORY OF PRESENT ILLNESS: This 79-year-old man presented with an episode of difficulty with langua ge that lasted about 5 minutes about 9 a.m. in the morning of the day of admission. He had had a str mor 2 years ago and has mild residual dysarthria and right leg dragging since his stroke. At the sarah e that he was in the emergency room, it was felt by him and his partner who was there to be completel y out of his baseline. The patient was monitored on the telemetry unit. He had a CT scan of the brain, a CTA of the head an d neck, and an MRI of the brain. The MRI showed an area of encephalomalacia related to the previous left-sided hematoma, but no acute changes, which are stable. He had no further symptoms in the hospi [place]. He remained in sinus rhythm. His blood pressure and heart rate run a little bit on the low elizabeth e, but the patient states this is normal for him. He is quite active. He has no lightheadedness. It is possible this represented a TIA or even a very short seizure. His symptoms could have been rel ated to the same brain lesion as his previous stroke. They are relatively minor and short lived. If they recur, long-term outpatient Holter monitoring could be considered. I note that he had severe e xacerbation of his gout when he took aspirin and he will continue only on his clopidogrel. FINAL DIAGNOSES: 1. Transient aphasia. 2. Coronary artery disease. 3. Gout. 4. Hypothyroidism. DISCHARGE MEDICATIONS: 1. Clopidogrel 75 mg h.s. 2. Simvastatin 10 mg h.s. 3. Allopurinol 300 mg daily. 4. Vitamin B12 1000 mcg daily. 5. Levothyroxine 75 mcg daily. 6. Carvedilol 6.25 mg b.i.d. DISPOSITION ON DISCHARGE: Discharged home. CONDITION ON DISCHARGE: Stable. [id number]/[facility] #: [id number]
== END 2019-07-29 09:50 | disposition home or self-care (01) ==
LOC: ED 10:02 → MEDTELE 14:08
PROVIDERS: ADMIT Internal Medicine; ATTEND Internal Medicine
DX: R47.01 Aphasia (principal); I25.10 Atherosclerotic heart disease of native coronary artery without angina pectoris; M10.9 Gout, unspecified; E03.9 Hypothyroidism, unspecified; R41.82 Altered mental status, unspecified; K21.9 Gastro-esophageal reflux disease without esophagitis; Z86.73 Personal history of transient ischemic attack (TIA), and cerebral infarction without residual deficits; I10 Essential (primary) hypertension; Z79.899 Other long term (current) drug therapy
CPT/HCPCS: 36415; 70450; 70496; 70498; 70551; 71045; 80053; 80061; 81003; 83605; 84443; 84484; 85025; 85610; 85730; 93005; 96360; 99285; A9270-GY; G0378; Q9967

== ENCOUNTER 2020-08-16 10:13 | Observation (INO) ==
[2020-08-16] MEDS ORDERED: NS 0.9% 1000 ml BAG 1,000 ML IV ONE (10:26)
[2020-08-16 10:42] LABS: ABS Basophils 0.1 10^3/ul (0-0.2); ABS Eosinophils 0.2 10^3/ul (0-0.6); ABS Lymphocytes 1.2 10^3/ul (1.0-4.8); ABS Monocytes 0.7 10^3/ul (0-0.8); ABS Neutrophils 3.6 10^3/ul (1.5-7.7); Hematocrit 38 % (42-52); Hemoglobin 12.4 g/dL (14.0-18.0); Lymphocyte % 21.1 %; Mean Corpuscular HGB Conc 33 g/dL (31-36); Mean Corpuscular Hemoglobin 31 pg (27-31); Mean Corpuscular Volume 95 fL (80-94); Mean Platelet Volume 7.9 fL (7.4-10.4); Platelet Count 192 10^3/uL (150-450); Red Blood Count 3.97 10^6 /uL (4.18-5.48); Red Cell Distribution Width 19 % (10-15); White Blood Count 5.9 10^3/uL (3.5-10.8)
[2020-08-16] MEDS ORDERED: Iodixanol (CONTRAST) 320 MG/ML 100 ML SDV IV ONE (10:45)
[2020-08-16 10:55] LABS: INR 1.14 (0.82-1.09)
[2020-08-16 11:00] LABS: Albumin/Globulin Ratio 1.3 (1-3); BUN/Creatinine Ratio 8.6 (8-20); Calcium 9.1 mg/dL (8.6-10.3); EGFR African American 94.6 (>60); EGFR Non-African American 78.2 (>60); HDL Cholesterol 60.8 mg/dL; Potassium 4.3 mmol/L (3.5-5.0); Total Bilirubin 0.5 mg/dL (0.2-1.0)
[2020-08-16 11:02] LABS: Troponin I 0.01 ng/mL (<0.03)
[2020-08-16] MEDS ORDERED: THIAMINE IV ONE (12:00)
[2020-08-16] MEDS ORDERED: FOLIC ACID IV ONE (12:00)
[2020-08-16] MEDS ORDERED: [UNRECOGNIZED DRUG - OTHER] IV ONE (12:00)
[2020-08-16] MEDS ORDERED: Ondansetron 4 mg VIAL 2 MG/ML 2 ml VIAL IV PRN (12:51)
[2020-08-16] MEDS ORDERED: Perflutren Lipid Microsphere 3 ML VIAL ONE (15:50)
[2020-08-16] MEDS ORDERED: Heparin 5000 UNITS/ML 1 mL VIAL SUBCUT SCH (22:00)
[2020-08-17 05:50] LABS: ABS Basophils 0.1 10^3/ul (0-0.2); ABS Eosinophils 0.2 10^3/ul (0-0.6); ABS Lymphocytes 1.1 10^3/ul (1.0-4.8); ABS Monocytes 1.1 10^3/ul (0-0.8); Hematocrit 32 % (42-52); Lymphocyte % 16.6 %; Mean Corpuscular HGB Conc 35 g/dL (31-36); Mean Corpuscular Hemoglobin 33 pg (27-31); Mean Corpuscular Volume 94 fL (80-94); Platelet Count 148 10^3/uL (150-450); Red Blood Count 3.38 10^6 /uL (4.18-5.48); Red Cell Distribution Width 19 % (10-15); White Blood Count 6.4 10^3/uL (3.5-10.8)
[2020-08-17 06:06] LABS: BUN/Creatinine Ratio 9.2 (8-20); Calcium 8.6 mg/dL (8.6-10.3); EGFR African American 102.2 (>60); EGFR Non-African American 84.4 (>60); Potassium 3.9 mmol/L (3.5-5.0)
[2020-08-17] MEDS ORDERED: CYANOCOBALAMIN 100 MCG PO SCH (09:00)
[2020-08-17 13:22] VITALS: BP 124/72
== END 2020-08-17 14:06 | disposition home or self-care (01) ==
LOC: ED 10:13 → MEDTELE 10:13
PROVIDERS: ADMIT Hospitalist; ATTEND Internal Medicine

== ENCOUNTER 2022-02-05 12:44 | Inpatient (IN) ==
[2022-02-05] MEDS ORDERED: NS 0.9% 1000 ml BAG 1,000 ML IV ONE (13:05)
[2022-02-05] MEDS ORDERED: Morphine 4 MG/ML VIAL (1 ml) IV ONE (13:07)
[2022-02-05] MEDS ORDERED: Ondansetron 4 mg VIAL 2 MG/ML 2 ml VIAL IV ONE (13:07)
[2022-02-05 13:33] LABS: ABS Basophils 0.1 10^3/ul (0-0.2); ABS Lymphocytes 0.9 10^3/ul (1.0-4.8); ABS Monocytes 1.3 10^3/ul (0-0.8); ABS Neutrophils 7.9 10^3/ul (1.5-7.7); Eosinophil % 0.4 %; Hematocrit 41 % (42-52); Lymphocyte % 8.4 %; Mean Corpuscular HGB Conc 34 g/dL (31-36); Mean Corpuscular Hemoglobin 35 pg (27-31); Mean Corpuscular Volume 104 fL (80-94); Mean Platelet Volume 8.1 fL (7.4-10.4); Nucleated Red Blood Cells % 0.1; Platelet Count 153 10^3/uL (150-450); Red Blood Count 3.99 10^6 /uL (4.18-5.48); Red Cell Distribution Width 14 % (10-15); White Blood Count 10.2 10^3/uL (3.5-10.8)
[2022-02-05 14:04] LABS: INR 1.25 (0.86-1.15); INR 1.26 (0.86-1.15)
[2022-02-05 14:16] LABS: Albumin/Globulin Ratio 1.3 (1-3); Calcium 9.2 mg/dL (8.6-10.3); Globulin 3.2 g/dL (2-4); Magnesium 1.6 mg/dL (1.9-2.7); Total Bilirubin 0.7 mg/dL (0.2-1.0); Total Protein 7.2 g/dL (6.4-8.9); eGFR CKD-EPI 90.3 (>60)
[2022-02-05] MEDS ORDERED: Magnesium Sulfate 2 gm BAG 2 GM/50 ML BAG IVPB ONE (14:50)
[2022-02-05 16:07] LABS: Urine Appearance Clear; Urine Bilirubin Negative (Negative); Urine Blood Negative (Negative); Urine Color Yellow; Urine Glucose Negative (Negative); Urine Ketones Negative (Negative); Urine Nitrite Negative (Negative); Urine Protein Negative (Negative); Urine Specific Gravity 1.009 (1.002-1.030); Urine Urobilinogen Negative (Negative)
[2022-02-05] MEDS ORDERED: Perflutren Lipid Microsphere 3 ML VIAL ONE (16:30)
[2022-02-05 18:20] LABS: Calcium 8.7 mg/dL (8.6-10.3); Potassium 4.1 mmol/L (3.5-5.0); eGFR CKD-EPI 94.7 (>60)
[2022-02-05] MEDS ORDERED: NS 0.9% 1000 ml BAG 1,000 ML IV SCH (19:00)
[2022-02-05] MEDS ORDERED: Heparin 5000 UNITS/ML 1 mL VIAL SUBCUT SCH (22:00)
[2022-02-06 05:50] LABS: ABS Eosinophils 0.2 10^3/ul (0-0.6); ABS Lymphocytes 1.1 10^3/ul (1.0-4.8); ABS Monocytes 1.3 10^3/ul (0-0.8); Eosinophil % 2.8 %; Hematocrit 37 % (42-52); Hemoglobin 12.7 g/dL (14.0-18.0); Lymphocyte % 19.4 %; Mean Corpuscular HGB Conc 34 g/dL (31-36); Mean Corpuscular Hemoglobin 36 pg (27-31); Mean Corpuscular Volume 105 fL (80-94); Mean Platelet Volume 8.1 fL (7.4-10.4); Platelet Count 133 10^3/uL (150-450); Red Blood Count 3.54 10^6 /uL (4.18-5.48); Red Cell Distribution Width 14 % (10-15); White Blood Count 5.6 10^3/uL (3.5-10.8)
[2022-02-06 06:35] LABS: Calcium 8.6 mg/dL (8.6-10.3); Magnesium 1.9 mg/dL (1.9-2.7); Potassium 4.7 mmol/L (3.5-5.0); eGFR CKD-EPI 88.6 (>60)
[2022-02-06 08:01] LABS: Activated Partial Thrombo Time 31.7 seconds (26.0-38.0); INR 1.29 (0.86-1.15)
[2022-02-06] MEDS: Heparin 5000 UNITS/ML 1 mL VIAL SUBCUT SCH ×2 (14:34→23:05)
[2022-02-07 05:04] LABS: ABS Eosinophils 0.2 10^3/ul (0-0.6); ABS Lymphocytes 1.5 10^3/ul (1.0-4.8); ABS Monocytes 1.3 10^3/ul (0-0.8); ABS Neutrophils 3.7 10^3/ul (1.5-7.7); Eosinophil % 3.2 %; Hematocrit 36 % (42-52); Hemoglobin 12.5 g/dL (14.0-18.0); Lymphocyte % 22.1 %; Mean Corpuscular HGB Conc 35 g/dL (31-36); Mean Corpuscular Hemoglobin 36 pg (27-31); Mean Corpuscular Volume 104 fL (80-94); Mean Platelet Volume 8.6 fL (7.4-10.4); Nucleated Red Blood Cells % 0.1; Platelet Count 132 10^3/uL (150-450); Red Blood Count 3.44 10^6 /uL (4.18-5.48); Red Cell Distribution Width 14 % (10-15); White Blood Count 6.8 10^3/uL (3.5-10.8)
[2022-02-07 05:32] LABS: Calcium 8.1 mg/dL (8.6-10.3); Potassium 4.2 mmol/L (3.5-5.0); eGFR CKD-EPI 91.8 (>60)
[2022-02-07] MEDS: Heparin 5000 UNITS/ML 1 mL VIAL SUBCUT SCH ×2 (06:26→14:37)
[2022-02-07] MEDS ORDERED: fentaNYL 100 mcg/2 ml 50 MCG/ML VIAL ONE (07:23)
[2022-02-07] MEDS ORDERED: Lidocaine 2% PF 5 ML VIAL ONE (07:24)
[2022-02-07] MEDS ORDERED: Propofol 10 MG/ML 20 ML BTL ONE (07:24)
[2022-02-07] MEDS ORDERED: Acetaminophen IV 1 GM/100ML 100 ML IV ONE (07:34)
[2022-02-07] MEDS ORDERED: Rocuronium 50 mg VIAL 10 mg/ml 5 ml VIAL (50 mg) ONE (07:34)
[2022-02-07] MEDS ORDERED: ceFAZolin 1 GM ADVAN 1 GM ADDV.VIAL IVPB ONE (08:22)
[2022-02-07] MEDS ORDERED: Naloxone 0.4 mg VIAL 0.4 mg/ml 1 ml VIAL IV PRN (08:35)
[2022-02-07] MEDS ORDERED: Morphine 4 MG/ML VIAL (1 ml) IV PRN (08:35)
[2022-02-07] MEDS ORDERED: fentaNYL 100 mcg/2 ml 50 MCG/ML VIAL IV PRN (08:35)
[2022-02-07] MEDS ORDERED: Ondansetron 4 mg VIAL 2 MG/ML 2 ml VIAL ONE (09:25)
[2022-02-07] MEDS ORDERED: Dexamethasone IV 4 MG/ML VIAL 1 ml VIAL ONE (09:25)
[2022-02-07] MEDS ORDERED: ROPIVACAINE 5 MG/ML 30 ML BTL (0.5%) ONE (09:58)
[2022-02-07] MEDS: LACTATED RINGERS 1000 ML BAG IV SCH (13:45)
[2022-02-07] MEDS ORDERED: Ondansetron ODT 4 mg TAB 4 MG TAB PO PRN (14:37)
[2022-02-07] MEDS ORDERED: diPHENhydraMINE 25 mg TAB PO PRN (14:38)
[2022-02-07] MEDS ORDERED: Lactated Ringers 1000 ml BAG 1,000 ML IV ONE (15:56)
[2022-02-07] MEDS: ceFAZolin 1 GM in Dextrose 1 GM/50 ML BAG IVPB SCH (18:36)
[2022-02-07 18:45] LABS: ABS Lymphocytes 0.6 10^3/ul (1.0-4.8); ABS Neutrophils 8.1 10^3/ul (1.5-7.7); ABS Nucleated RBC 0.3 10^3/ul; Hematocrit 29 % (42-52); Hemoglobin 8.6 g/dL (14.0-18.0); Lymphocyte % 6.3 %; Mean Corpuscular HGB Conc 30 g/dL (31-36); Mean Corpuscular Hemoglobin 31 pg (27-31); Mean Corpuscular Volume 106 fL (80-94); Mean Platelet Volume 8.6 fL (7.4-10.4); Nucleated Red Blood Cells % 3.4; Platelet Count 130 10^3/uL (150-450); Red Blood Count 2.74 10^6 /uL (4.18-5.48); Red Cell Distribution Width 14 % (10-15); White Blood Count 9.7 10^3/uL (3.5-10.8)
[2022-02-07 19:03] LABS: Albumin/Globulin Ratio 1.3 (1-3); Globulin 2.4 g/dL (2-4); Magnesium 1.6 mg/dL (1.9-2.7); Potassium 4.3 mmol/L (3.5-5.0); Total Bilirubin 0.9 mg/dL (0.2-1.0); Total Protein 5.4 g/dL (6.4-8.9)
[2022-02-07] MEDS ORDERED: Magnesium Sulfate 2 gm BAG 2 GM/50 ML BAG IVPB ONE (19:14)
[2022-02-07 22:47] LABS: Hematocrit 27 % (42-52); Hemoglobin 9.2 g/dL (14.0-18.0)
[2022-02-08] MEDS: ceFAZolin 1 GM in Dextrose 1 GM/50 ML BAG IVPB SCH ×2 (03:10→09:43)
[2022-02-08] MEDS: LACTATED RINGERS 1000 ML BAG IV SCH (03:49)
[2022-02-08 06:14] LABS: Hematocrit 25 % (42-52); Hemoglobin 8.3 g/dL (14.0-18.0); Mean Corpuscular HGB Conc 34 g/dL (31-36); Mean Corpuscular Hemoglobin 35 pg (27-31); Mean Corpuscular Volume 104 fL (80-94); Mean Platelet Volume 8.3 fL (7.4-10.4); Platelet Count 122 10^3/uL (150-450); Red Blood Count 2.37 10^6 /uL (4.18-5.48); Red Cell Distribution Width 14 % (10-15); White Blood Count 11.7 10^3/uL (3.5-10.8)
[2022-02-08 06:47] LABS: ABS Monocytes 1.7 10^3/ul (0-0.8); ABS Neutrophils 8.9 10^3/ul (1.5-7.7); Lymphocyte % 8.9 %
[2022-02-08 06:48] LABS: Calcium 8.1 mg/dL (8.6-10.3); Magnesium 1.9 mg/dL (1.9-2.7); Potassium 4.4 mmol/L (3.5-5.0); eGFR CKD-EPI 87.9 (>60)
[2022-02-08] MEDS: Magnesium Hydroxide LIQ 30 ML UDC PO PRN (17:17)
[2022-02-09 06:18] LABS: Hematocrit 22 % (42-52); Hemoglobin 7.5 g/dL (14.0-18.0); Mean Corpuscular HGB Conc 34 g/dL (31-36); Mean Corpuscular Hemoglobin 35 pg (27-31); Mean Corpuscular Volume 105 fL (80-94); Mean Platelet Volume 8.6 fL (7.4-10.4); Platelet Count 127 10^3/uL (150-450); Red Blood Count 2.11 10^6 /uL (4.18-5.48); Red Cell Distribution Width 14 % (10-15); White Blood Count 11.7 10^3/uL (3.5-10.8)
[2022-02-09 06:21] LABS: ABS Eosinophils 0.1 10^3/ul (0-0.6); ABS Lymphocytes 1.5 10^3/ul (1.0-4.8); ABS Monocytes 1.9 10^3/ul (0-0.8); ABS Neutrophils 8.2 10^3/ul (1.5-7.7); Eosinophil % 0.7 %; Lymphocyte % 12.7 %
[2022-02-09 06:36] LABS: Magnesium 1.8 mg/dL (1.9-2.7); Potassium 4.2 mmol/L (3.5-5.0); eGFR CKD-EPI 90.7 (>60)
[2022-02-09] MEDS ORDERED: Magnesium Sulfate IV 1GM/100ML 1 GM/100 ML BAG IV ONE (08:07)
[2022-02-10 05:53] LABS: Hematocrit 21 % (42-52); Hemoglobin 7.1 g/dL (14.0-18.0); Mean Corpuscular HGB Conc 35 g/dL (31-36); Mean Corpuscular Hemoglobin 36 pg (27-31); Mean Corpuscular Volume 104 fL (80-94); Mean Platelet Volume 8.2 fL (7.4-10.4); Platelet Count 140 10^3/uL (150-450); Red Blood Count 1.97 10^6 /uL (4.18-5.48); Red Cell Distribution Width 14 % (10-15); White Blood Count 9.9 10^3/uL (3.5-10.8)
[2022-02-10 06:17] LABS: ABS Eosinophils 0.1 10^3/ul (0-0.6); ABS Lymphocytes 1.6 10^3/ul (1.0-4.8); ABS Monocytes 1.6 10^3/ul (0-0.8); ABS Neutrophils 6.5 10^3/ul (1.5-7.7); Eosinophil % 1.3 %; Lymphocyte % 16.3 %
[2022-02-10 06:22] LABS: Calcium 7.9 mg/dL (8.6-10.3); Magnesium 1.8 mg/dL (1.9-2.7); Potassium 4.1 mmol/L (3.5-5.0); eGFR CKD-EPI 92.2 (>60)
[2022-02-10] MEDS ORDERED: Magnesium Sulfate IV 1GM/100ML 1 GM/100 ML BAG IV ONE (08:38)
[2022-02-11 06:10] LABS: ABS Eosinophils 0.2 10^3/ul (0-0.6); ABS Lymphocytes 1.6 10^3/ul (1.0-4.8); ABS Monocytes 1.5 10^3/ul (0-0.8); ABS Neutrophils 6.2 10^3/ul (1.5-7.7); Eosinophil % 1.9 %; Hematocrit 21 % (42-52); Lymphocyte % 17.1 %; Mean Corpuscular HGB Conc 34 g/dL (31-36); Mean Corpuscular Hemoglobin 36 pg (27-31); Mean Corpuscular Volume 106 fL (80-94); Mean Platelet Volume 8.1 fL (7.4-10.4); Platelet Count 171 10^3/uL (150-450); Red Blood Count 1.95 10^6 /uL (4.18-5.48); Red Cell Distribution Width 14 % (10-15); White Blood Count 9.5 10^3/uL (3.5-10.8)
[2022-02-11 06:28] LABS: Potassium 4.1 mmol/L (3.5-5.0); eGFR CKD-EPI 92.2 (>60)
[2022-02-11] MEDS: Magnesium Hydroxide LIQ 30 ML UDC PO PRN (10:15)
[2022-02-11] MEDS ORDERED: Polyethylene Glycol 3350 17 GM PACKET PO PRN (14:45)
[2022-02-11] MEDS ORDERED: Senna TAB 8.6 mg TAB PO PRN (14:45)
[2022-02-12 05:42] LABS: ABS Eosinophils 0.2 10^3/ul (0-0.6); ABS Lymphocytes 1.2 10^3/ul (1.0-4.8); ABS Monocytes 1.5 10^3/ul (0-0.8); ABS Neutrophils 6.4 10^3/ul (1.5-7.7); Eosinophil % 1.7 %; Hematocrit 20 % (42-52); Hemoglobin 6.8 g/dL (14.0-18.0); Lymphocyte % 12.9 %; Mean Corpuscular HGB Conc 34 g/dL (31-36); Mean Corpuscular Hemoglobin 36 pg (27-31); Mean Corpuscular Volume 105 fL (80-94); Mean Platelet Volume 7.9 fL (7.4-10.4); Nucleated Red Blood Cells % 0.1; Platelet Count 210 10^3/uL (150-450); Red Blood Count 1.89 10^6 /uL (4.18-5.48); Red Cell Distribution Width 14 % (10-15); White Blood Count 9.2 10^3/uL (3.5-10.8)
[2022-02-12 06:21] LABS: Potassium 4.1 mmol/L (3.5-5.0); eGFR CKD-EPI 92.2 (>60)
[2022-02-12] MEDS: Polyethylene Glycol 3350 17 GM PACKET PO SCH (10:59)
[2022-02-12 16:22] LABS: Hematocrit 26 % (42-52); Hemoglobin 8.9 g/dL (14.0-18.0)
[2022-02-13 06:06] LABS: Hematocrit 23 % (42-52); Hemoglobin 7.9 g/dL (14.0-18.0); Mean Corpuscular HGB Conc 35 g/dL (31-36); Mean Corpuscular Hemoglobin 35 pg (27-31); Mean Corpuscular Volume 103 fL (80-94); Platelet Count 235 10^3/uL (150-450); Red Blood Count 2.22 10^6 /uL (4.18-5.48); Red Cell Distribution Width 15 % (10-15)
[2022-02-13 06:32] LABS: CO2 Carbon Dioxide 20 mmol/L (22-32); Calcium 7.9 mg/dL (8.6-10.3); Chloride 98 mmol/L (101-111); Sodium 125 mmol/L (135-145)
[2022-02-13 06:38] LABS: Anion Gap 7 mmol/L (2-11); Blood Urea Nitrogen 15 mg/dL (6-24); Glucose 100 mg/dL (70-100)
[2022-02-13 07:16] LABS: ABS Eosinophils 0.1 10^3/ul (0-0.6); ABS Lymphocytes 1.6 10^3/ul (1.0-4.8); ABS Monocytes 2.2 10^3/ul (0-0.8); Eosinophil % 1.4 %; Lymphocyte % 15.6 %; Nucleated Red Blood Cells % 0.1
[2022-02-13] MEDS: Polyethylene Glycol 3350 17 GM PACKET PO SCH (10:48)
[2022-02-13 11:18] LABS: Rapid COVID-19 Molecular Undetected (Undetected)
[2022-02-13 12:18] VITALS: BP 90/62
== END 2022-02-13 14:20 | disposition swing bed (61) | DRG 522 ==
LOC: ED 12:44 → SSU 15:28 → SUATTDRO 15:28
PROVIDERS: ADMIT Internal Medicine; ATTEND Internal Medicine

== ENCOUNTER 2024-03-23 11:34 | Inpatient (IN) ==
[2024-03-23 12:33] LABS: ABS Basophils 0.1 10^3/uL (0.0-0.1); ABS Eosinophils 0.5 10^3/uL (0.0-0.5); ABS Lymphocytes 0.8 10^3/uL (1.0-4.8); ABS Monocytes 1.1 10^3/uL (0.0-1.1); ABS Neutrophils 7.1 10^3/uL (1.5-7.6); Eosinophil % 5.2 %; Hematocrit 35.1 % (38-53); Hemoglobin 11.9 g/dL (13.2-16.3); Lymphocyte % 8.3 %; Mean Corpuscular Hemoglobin 33.6 pg (27-33); Mean Corpuscular Hgb Conc 33.8 g/dL (31-36); Mean Corpuscular Volume 99.4 fL (80-97); Mean Platelet Volume 9.3 fL (7.5-11.2); Platelet Count 204 10^3/uL (150-450); Red Blood Count 3.53 10^6/uL (4.06-5.63); Red Cell Distribution Width 13.9 % (12-17); White Blood Count 9.6 10^3/uL (3.6-10.2)
[2024-03-23 13:15] LABS: Albumin 3.6 g/dL (3.2-5.2); Albumin/Globulin Ratio 1.1 (1-3); Calcium 8.6 mg/dL (8.6-10.3); Creatinine, Serum 1.03 mg/dL (0.67-1.17); Globulin 3.2 g/dL (2-4); Magnesium 1.7 mg/dL (1.9-2.7); Potassium 3.9 mmol/L (3.5-5.0); Total Bilirubin 1.1 mg/dL (0.2-1.0); Total Protein 6.8 g/dL (6.4-8.9); eGFR CKD-EPI 72.1 (>60)
[2024-03-23 13:46] LABS: INR 4.48 (0.83-1.13)
[2024-03-23] MEDS: Iohexol 350 (CONTRAST) 500 ML MDV IV ONE (13:54)
[2024-03-23] MEDS: Magnesium Sulfate 2 gm BAG 2 GM/50 ML BAG IVPB ONE (14:29)
[2024-03-23] MEDS: Furosemide 20 mg/2 ml IV VIAL IV ONE (15:19)
[2024-03-23] MEDS: Potassium Chlor 10 meq TAB PO ONE (15:26)
[2024-03-23 17:01] LABS: C Reactive Protein 51.77 mg/L (<8.01); Direct Bilirubin 0.5 mg/dL (0.03-0.18); Indirect Bilirubin 0.6 mg/dL (0.3-1.0)
[2024-03-23 22:15] LABS: Ferritin 540.1 ng/mL (24-336)
[2024-03-23 22:16] LABS: Prolactin 11.7 ng/mL (1.0-20.0)
[2024-03-24 06:40] LABS: ABS Basophils 0.1 10^3/uL (0.0-0.1); ABS Eosinophils 0.6 10^3/uL (0.0-0.5); ABS Monocytes 1.1 10^3/uL (0.0-1.1); ABS Neutrophils 4.7 10^3/uL (1.5-7.6); Eosinophil % 7.4 %; Hematocrit 30.9 % (38-53); Hemoglobin 10.6 g/dL (13.2-16.3); Lymphocyte % 13.5 %; Mean Corpuscular Hgb Conc 34.3 g/dL (31-36); Mean Platelet Volume 9.4 fL (7.5-11.2); Platelet Count 176 10^3/uL (150-450); Red Blood Count 3.12 10^6/uL (4.06-5.63); Red Cell Distribution Width 14.1 % (12-17); White Blood Count 7.5 10^3/uL (3.6-10.2)
[2024-03-24 06:58] LABS: Albumin/Globulin Ratio 1.1 (1-3); Creatinine, Serum 0.99 mg/dL (0.67-1.17); Direct Bilirubin 0.4 mg/dL (0.03-0.18); Globulin 2.7 g/dL (2-4); Indirect Bilirubin 0.7 mg/dL (0.3-1.0); Magnesium 1.8 mg/dL (1.9-2.7); Potassium 3.6 mmol/L (3.5-5.0); Total Bilirubin 1.1 mg/dL (0.2-1.0); Total Protein 5.7 g/dL (6.4-8.9); eGFR CKD-EPI 75.6 (>60)
[2024-03-24 07:08] LABS: INR 3.69 (0.83-1.13)
[2024-03-24] MEDS ORDERED: CYANOCOBALAMIN 100 MCG PO SCH (09:00)
[2024-03-24] MEDS: Magnesium Sulfate 2 gm BAG 2 GM/50 ML BAG IVPB ONE (09:52)
[2024-03-24] MEDS: Potassium Chlor 20 meq TAB.ER PO ONE (09:54)
[2024-03-24] MEDS ORDERED: Sulfur Hexaflouride MICROSPHR 25 MG VIAL ONE (10:31)
[2024-03-24] MEDS ORDERED: Magnesium Hydroxide LIQ 30 ML UDC PO PRN (12:05)
[2024-03-24] MEDS ORDERED: Senna TAB 8.6 mg TAB PO PRN (12:05)
[2024-03-24] MEDS ORDERED: Polyethylene Glycol 3350 17 GM PACKET PO PRN (12:05)
[2024-03-24] MEDS: Prothrombin Complex Conc. DOSE = Units Factor IX (nine) IV SLOW PU ONE (12:22)
[2024-03-24 12:45] LABS: Hepatitis B Surface Ab Not Immune (Immune)
[2024-03-24 12:46] LABS: Hepatitis C Antibody Negative (Negative)
[2024-03-24 17:05] LABS: Body Fluid Total Nucleated 1653 /mcL
[2024-03-24 17:07] LABS: Body Fluid Source Pleural Fluid
[2024-03-24 17:08] LABS: Body Fluid Appearance Bloody; Body Fluid Color Red
[2024-03-24 17:59] LABS: Body Fluid Mono 4 %; Body Fluid Other Cells 1; Body Fluid Total Cells Counted 200
[2024-03-24 18:58] LABS: INR 3.27 (0.83-1.13)
[2024-03-24] MEDS: Magnesium Hydroxide LIQ 30 ML UDC PO SCH (20:11)
[2024-03-25 05:14] LABS: Hepatitis B Surface Antigen Nonreactive (Nonreactive)
[2024-03-25 06:46] LABS: ABS Basophils 0.1 10^3/uL (0.0-0.1); ABS Eosinophils 0.3 10^3/uL (0.0-0.5); ABS Neutrophils 4.5 10^3/uL (1.5-7.6); Eosinophil % 4.6 %; Hematocrit 27.9 % (38-53); Hemoglobin 9.7 g/dL (13.2-16.3); Lymphocyte % 14.3 %; Mean Corpuscular Hemoglobin 34.3 pg (27-33); Mean Corpuscular Hgb Conc 34.8 g/dL (31-36); Mean Corpuscular Volume 98.8 fL (80-97); Mean Platelet Volume 9.4 fL (7.5-11.2); Platelet Count 157 10^3/uL (150-450); Red Blood Count 2.83 10^6/uL (4.06-5.63); Red Cell Distribution Width 13.8 % (12-17); White Blood Count 6.8 10^3/uL (3.6-10.2)
[2024-03-25 07:07] LABS: INR 3.31 (0.83-1.13)
[2024-03-25 07:09] LABS: Albumin 2.7 g/dL (3.2-5.2); Albumin/Globulin Ratio 1.1 (1-3); Calcium 7.8 mg/dL (8.6-10.3); Creatinine, Serum 1.05 mg/dL (0.67-1.17); Globulin 2.5 g/dL (2-4); Magnesium 2.1 mg/dL (1.9-2.7); Potassium 4.4 mmol/L (3.5-5.0); Total Protein 5.2 g/dL (6.4-8.9); eGFR CKD-EPI 70.4 (>60)
[2024-03-25 11:30] LABS: Activated Partial Thrombo Time 38.7 seconds (26.0-38.0)
[2024-03-25 12:06] LABS: INR 3.56 (0.83-1.13); Mixing Study Protime 38.6 seconds (9.5-12.8)
[2024-03-25 14:39] LABS: PT/Normal Control 18.5 seconds (9.5-12.8)
[2024-03-25 14:40] LABS: PT/After 1 Hour Incubation 17.5 seconds (9.5-12.8); PTT/After 1 HR Incubation 33.2 seconds (26.0-38.0); PTT/Normal Control 33.4 seconds (26.0-38.0)
[2024-03-26 06:20] LABS: ABS Basophils 0.1 10^3/uL (0.0-0.1); ABS Eosinophils 0.2 10^3/uL (0.0-0.5); ABS Lymphocytes 0.7 10^3/uL (1.0-4.8); ABS Monocytes 0.9 10^3/uL (0.0-1.1); ABS Nucleated RBC 0.01 10^3/ul; Eosinophil % 1.5 %; Hematocrit 28.2 % (38-53); Hemoglobin 9.8 g/dL (13.2-16.3); Lymphocyte % 6.5 %; Mean Corpuscular Hemoglobin 34.2 pg (27-33); Mean Corpuscular Hgb Conc 34.6 g/dL (31-36); Mean Platelet Volume 9.3 fL (7.5-11.2); Nucleated Red Blood Cells % 0.1 %/100WBC (0.0-0.8); Platelet Count 167 10^3/uL (150-450); Red Blood Count 2.85 10^6/uL (4.06-5.63); Red Cell Distribution Width 13.9 % (12-17); White Blood Count 10.9 10^3/uL (3.6-10.2)
[2024-03-26 06:26] LABS: INR 3.15 (0.83-1.13)
[2024-03-26 06:39] LABS: Albumin 2.9 g/dL (3.2-5.2); Albumin/Globulin Ratio 1.1 (1-3); Creatinine, Serum 0.95 mg/dL (0.67-1.17); Globulin 2.7 g/dL (2-4); Potassium 4.4 mmol/L (3.5-5.0); Total Protein 5.6 g/dL (6.4-8.9); eGFR CKD-EPI 79.4 (>60)
[2024-03-26 13:16] VITALS: BP 113/74
[2024-03-27 10:49] LABS: Lactate Dehydrogenase, BF 165 U/L
[2024-03-27 10:50] LABS: Albumin, BF 2.1 g/dL; Fluid Type, Albumin PLEURAL; Fluid Type, Protein, Total PLEURAL; Glucose, BF 35 mg/dL; Total Protein, BF 3.6 g/dL
[2024-03-27 17:21] LABS: Hepatitis Be Antigen Negative (Negative)
== END 2024-03-26 16:20 | disposition home or self-care (01) | DRG 188 ==
LOC: ED 11:34 → EDHOLD 11:34 → SUATTDRO 14:15 → MED 17:22 → SUATTDRO 03-24 13:54
PROVIDERS: ADMIT Student in an Organized Health Care Education/Training Program; ATTEND Internal Medicine

== ENCOUNTER 2024-09-09 15:46 | Inpatient (IN) ==
[2024-09-09 17:12] LABS: ABS Basophils 0.1 10^3/uL (0.0-0.1); ABS Eosinophils 0.2 10^3/uL (0.0-0.5); ABS Lymphocytes 0.3 10^3/uL (1.0-4.8); ABS Nucleated RBC 0.01 10^3/ul; Eosinophil % 2.4 %; Hematocrit 44.9 % (38-53); Hemoglobin 15.2 g/dL (13.2-16.3); High Sens Troponin Baseline 10 pg/mL (<20); Lymphocyte % 4.6 %; Mean Corpuscular Hemoglobin 35.4 pg (27-33); Mean Corpuscular Volume 104.3 fL (80-97); Mean Platelet Volume 8.3 fL (7.5-11.2); Nucleated Red Blood Cells % 0.2 %/100WBC (0.0-0.8); Platelet Count 193 10^3/uL (150-450); Red Cell Distribution Width 15.4 % (12-17); White Blood Count 6.5 10^3/uL (3.6-10.2)
[2024-09-09 17:41] LABS: ALT 8 U/L (7-52); Albumin/Globulin Ratio 0.8 (1-3); Alkaline Phosphatase 116 U/L (35-149); Anion Gap 7 mmol/L (2-16); Blood Urea Nitrogen 10 mg/dL (6-24); CO2 Carbon Dioxide 23 mmol/L (22-32); Calcium 8.5 mg/dL (8.6-10.3); Chloride 97 mmol/L (101-111); Creatinine, Serum 0.94 mg/dL (0.67-1.17); Globulin 3.7 g/dL (2-4); Glucose 86 mg/dL (70-100); Sodium 127 mmol/L (135-145); Total Bilirubin 1.1 mg/dL (0.2-1.0); Total Protein 6.7 g/dL (6.4-8.9); eGFR CKD-EPI 79.9 (>60)
[2024-09-09] MEDS: Lactated Ringers 1000 ml BAG 1,000 ML IV ONE (17:52)
[2024-09-09 18:01] LABS: TSH Ultra Thyroid Stim Horm 6.15 mcIU/mL (0.34-5.60)
[2024-09-09 18:21] LABS: Urine Appearance Clear; Urine Bilirubin Negative (Negative); Urine Blood Negative (Negative); Urine Color Light-Yellow; Urine Glucose 4+ (>=1000 mg/dL) (Negative); Urine Ketones 1+ (Negative); Urine Nitrite Negative (Negative); Urine Protein Trace (Negative); Urine Urobilinogen Negative (Negative)
[2024-09-09 18:36] LABS: High Sensitivity Troponin 1 Hr 17 pg/mL (<20)
[2024-09-09 21:20] LABS: Potassium, Whole Blood 4.6 mmol/L (3.4-4.5)
[2024-09-09 21:35] LABS: Magnesium 1.6 mg/dL (1.9-2.7)
[2024-09-09] MEDS: Magnesium Sulf 4 GM/100 ML IV 4,000 MG/100 ML BAG IVPB ONE (22:41)
[2024-09-09] MEDS: Remdesivir 100 mg Vial 200 MG in NS 0.9% 250 ml 210 ML IV ONE (22:44)
[2024-09-09 22:54] LABS: INR 1.96 (0.85-1.14)
[2024-09-09 23:04] LABS: Urine Osmo 690 mOsm/kg (150-1150)
[2024-09-10] MEDS: Lactated Ringers 1000 ml BAG 1,000 ML IV SCH (01:08)
[2024-09-10] MEDS: Lactated Ringers 1000 ml BAG 500 ML IV ONE (05:21)
[2024-09-10 06:23] LABS: Hematocrit 35.6 % (38-53); Hemoglobin 12.2 g/dL (13.2-16.3); Mean Corpuscular Hemoglobin 35.3 pg (27-33); Mean Corpuscular Hgb Conc 34.3 g/dL (31-36); Mean Corpuscular Volume 102.9 fL (80-97); Mean Platelet Volume 8.6 fL (7.5-11.2); Platelet Count 189 10^3/uL (150-450); Red Blood Count 3.46 10^6/uL (4.06-5.63); Red Cell Distribution Width 15.5 % (12-17); White Blood Count 3.8 10^3/uL (3.6-10.2)
[2024-09-10 06:33] LABS: INR 1.98 (0.85-1.14)
[2024-09-10 06:53] LABS: Albumin 2.4 g/dL (3.2-5.2); Anion Gap 4 mmol/L (2-16); Blood Urea Nitrogen 11 mg/dL (6-24); CO2 Carbon Dioxide 24 mmol/L (22-32); Calcium 7.5 mg/dL (8.6-10.3); Chloride 99 mmol/L (101-111); Creatinine, Serum 0.89 mg/dL (0.67-1.17); Glucose 87 mg/dL (70-100); Magnesium 2.4 mg/dL (1.9-2.7); Sodium 127 mmol/L (135-145); Total Protein 5.3 g/dL (6.4-8.9); eGFR CKD-EPI 84.5 (>60)
[2024-09-10 06:54] LABS: ALT 7 U/L (7-52); Albumin/Globulin Ratio 0.8 (1-3); Alkaline Phosphatase 87 U/L (35-149); Globulin 2.9 g/dL (2-4); Total Bilirubin 0.5 mg/dL (0.2-1.0)
[2024-09-10 07:14] LABS: ABS Lymphocytes 0.4 10^3/uL (1.0-4.8); ABS Neutrophils 2.4 10^3/uL (1.5-7.6); ABS Nucleated RBC 0.01 10^3/ul; Eosinophil % 0.3 %; Lymphocyte % 10.7 %; Nucleated Red Blood Cells % 0.3 %/100WBC (0.0-0.8)
[2024-09-10 07:15] LABS: Anisocytosis 1+; Macrocytosis 1+
[2024-09-10] MEDS: Remdesivir 100 mg Vial 100 MG in NS 0.9% 250 ml 230 ML IV SCH (21:28)
[2024-09-11 06:26] LABS: INR 2.39 (0.85-1.14)
[2024-09-11 07:01] LABS: Albumin 2.4 g/dL (3.2-5.2); Albumin/Globulin Ratio 0.9 (1-3); Calcium 7.3 mg/dL (8.6-10.3); Creatinine, Serum 0.83 mg/dL (0.67-1.17); Globulin 2.8 g/dL (2-4); Potassium 3.6 mmol/L (3.5-5.0); Total Bilirubin 0.5 mg/dL (0.2-1.0); Total Protein 5.2 g/dL (6.4-8.9); eGFR CKD-EPI 86.3 (>60)
[2024-09-11 09:36] LABS: Osmolality Serum 270 mOsm/kg (275-295)
[2024-09-11] MEDS: NS 0.9% 1000 ml BAG 1,000 ML IV SCH ×2 (11:07→18:32)
[2024-09-11 16:13] LABS: Calcium 7.4 mg/dL (8.6-10.3); Creatinine, Serum 0.76 mg/dL (0.67-1.17); Potassium 3.6 mmol/L (3.5-5.0); eGFR CKD-EPI 88.6 (>60)
[2024-09-12 06:37] LABS: INR 2.39 (0.85-1.14)
[2024-09-12 06:40] LABS: Albumin 2.1 g/dL (3.2-5.2); Albumin/Globulin Ratio 0.9 (1-3); Creatinine, Serum 0.73 mg/dL (0.67-1.17); Globulin 2.4 g/dL (2-4); Potassium 3.5 mmol/L (3.5-5.0); Total Bilirubin 0.4 mg/dL (0.2-1.0); Total Protein 4.5 g/dL (6.4-8.9); eGFR CKD-EPI 89.7 (>60)
[2024-09-12 15:03] VITALS: BP 115/67
== END 2024-09-12 15:55 | disposition home health service (06) | DRG 178 ==
LOC: EDHOLD 15:46 → ED 15:46 → SUATTDRO 21:01 → MED 09-10 07:36
PROVIDERS: ADMIT Student in an Organized Health Care Education/Training Program; ATTEND Student in an Organized Health Care Education/Training Program